=== PATIENT | male | born 1995 | race Two or more races ===

== ENCOUNTER 2020-11-16 15:59 | Emergency (ER) | payer OTHER ==
[~2020-11-16] VITALS: Ht 175.3 cm; Wt 86.2 kg
== END 2020-11-16 17:13 | disposition home or self-care (01) ==
LOC: ER 15:59
DX: S60.572A Other superficial bite of hand of left hand, initial encounter (principal); W54.0XXA Bitten by dog, initial encounter; Y93.89 Activity, other specified; Y92.018 Other place in single-family (private) house as the place of occurrence of the external cause; Y99.8 Other external cause status